=== PATIENT | female | born 1990 | race Caucasian/White ===

== ENCOUNTER 2017-06-24 13:25 | Inpatient (IN) | payer OTHER ==
[~2017-06-24] VITALS: Ht 165.1 cm; Wt 70.3 kg
[2017-06-24] MEDS ORDERED: LACTATED RINGERS 1000ML 1,000 ML IV PRN ×2 (13:28→14:43)
[2017-06-24] MEDS ORDERED: OXYTOCIN-LR 20 UNITS/1000 ML 1,000 ML IV SCH (13:30)
[2017-06-24 14:38] LABS: HEMATOCRIT 35.4 % (36-48); MEAN CORPUSCULAR HEMOGLOBIN 31.7 pg (27.0-33.0); MEAN CORPUSCULAR VOLUME 90.5 fL (79-99); PLATELET COUNT (AUTO) 168 K/uL (130-400); RED BLOOD CELL COUNT(AUTO) 3.91 MIL/uL (4.00-5.50); RED CELL DISTRIBUTION WIDTH 14.5 % (11.0-15.5); WHITE BLOOD COUNT (AUTO) 7.6 K/uL (4.8-10.8)
[2017-06-24] MEDS ORDERED: OXYTOCIN 10 USP UNITS/ML ONE ×2 (14:56→22:46)
[2017-06-24] MEDS ORDERED: EPHEDRINE-NS PF 50MG/5ML SYRINGE IV ONE (15:50)
[2017-06-24] MEDS ORDERED: LACTATED RINGERS 1000ML 1,000 ML IV ONE (22:45)
[2017-06-25] MEDS ORDERED: ROPIVACAINE 0.2%200ML EPIDURAL 200 ML EP SCH (03:15)
[2017-06-25] MEDS: OXYTOCIN 10 USP UNITS/ML 20 UNIT in LACTATED RINGERS 1000ML 1,000 ML IV SCH ×2 (04:10→11:17)
[2017-06-25] MEDS ORDERED: METHYLERGONOVINE MALEATE 0.2 MG/1 ML ML ONE (10:00)
[2017-06-25] MEDS ORDERED: MISOPROSTOL 200 MCG TABLET ONE (10:07)
[2017-06-25] MEDS ORDERED: CARBOPROST TROMETHAMINE 250 MCG/ML AMP IM ONE (10:07)
[2017-06-25] MEDS ORDERED: WITCH HAZEL 1 PAD TP PRN (10:15)
[2017-06-25] MEDS ORDERED: BENZOCAINE/LANOLIN/ALOE VERA 60 ML AEROSOL TP PRN (10:15)
[2017-06-25] MEDS ORDERED: ACETAMINOPHEN 325 MG TAB PO PRN (10:15)
[2017-06-25] MEDS ORDERED: LANOLIN 30GM OINTMENT TP PRN (10:15)
[2017-06-25] MEDS ORDERED: DIPH,PERTUSS(ACELL),TET VAC/PF 0.5 ML VIAL IM PRN (10:15)
[2017-06-25] MEDS ORDERED: ACETAMINOPHEN-CODEINE 300/30MG TAB PO PRN (10:15)
[2017-06-25] MEDS ORDERED: MEASLES/MUMPS/RUBELLA VACCINE, LIVE 0.5 ML/VIAL SQ PRN (10:15)
[2017-06-25 10:22] LABS: HEPATITIS Bs ANTIGEN SCREEN P Negative (Negative)
[2017-06-25] MEDS ORDERED: OXYTOCIN 10 USP UNITS/ML ONE ×2 (11:00→13:17)
[2017-06-25] MEDS: IBUPROFEN 800 MG TAB PO PRN (11:16)
[2017-06-25 12:30] VITALS: BP 124/78
[2017-06-25] MEDS ORDERED: PREN-154 PO (13:40)
[2017-06-25 15:26] VITALS: BP 121/75
[2017-06-25 19:34] VITALS: BP 101/70
[2017-06-25] MEDS: DOCUSATE SODIUM 100 MG CAP PO SCH (21:30)
[2017-06-25 23:20] VITALS: BP 124/75
[2017-06-26 03:41] VITALS: BP 114/67
[2017-06-26] MEDS: IBUPROFEN 800 MG TAB PO PRN ×2 (04:47→22:14)
[2017-06-26 07:41] VITALS: BP 116/77
[2017-06-26] MEDS: DOCUSATE SODIUM 100 MG CAP PO SCH ×2 (09:24→22:13)
[2017-06-26 11:34] VITALS: BP 110/65
[2017-06-26 15:54] VITALS: BP 115/77
[2017-06-26 19:55] VITALS: BP 113/64
[2017-06-26 23:25] VITALS: BP 109/63
[2017-06-27 03:45] VITALS: BP 122/79
[2017-06-27 07:30] VITALS: BP 118/76
[2017-06-27] MEDS: DOCUSATE SODIUM 100 MG CAP PO SCH (09:15)
[2017-06-27] MEDS: IBUPROFEN 800 MG TAB PO PRN (09:17)
[2017-06-27 11:17] VITALS: BP 109/70
[2017-06-27] MEDS ORDERED: DOCU-116 PO (11:28)
[2017-06-27] MEDS ORDERED: MO8B PO (11:29)
[2017-06-27 15:36] VITALS: BP 108/68
== END 2017-06-27 17:30 | disposition home or self-care (01) | DRG 775 ==
LOC: LDH 13:25 → WSH 06-25 12:09
PROVIDERS: ADMIT Obstetrics & Gynecology; ATTEND Obstetrics & Gynecology
PROC: 10907ZC Drainage of Amniotic Fluid, Therapeutic from Products of Conception, Via Natural or Artificial Opening (ICD-10-PCS; principal; 2017-06-25)
PROC: 10E0XZZ Delivery of Products of Conception, External Approach (ICD-10-PCS; 2017-06-25)
PROC: 3E033VJ Introduction of Other Hormone into Peripheral Vein, Percutaneous Approach (ICD-10-PCS; 2017-06-25)
PROC: 3E0234Z Introduction of Serum, Toxoid and Vaccine into Muscle, Percutaneous Approach (ICD-10-PCS; 2017-06-25)
PROC: 3E0134Z Introduction of Serum, Toxoid and Vaccine into Subcutaneous Tissue, Percutaneous Approach (ICD-10-PCS; 2017-06-25)
DX: O69.1XX0 Labor and delivery complicated by cord around neck, with compression, not applicable or unspecified (principal); O62.2 Other uterine inertia; Z37.0 Single live birth; Z3A.38 38 weeks gestation of pregnancy; Z23 Encounter for immunization
CPT/HCPCS: 36415; 85027; 86592; 86850; 86900; 86901; 87340; A4314; A4351; J2210; J2590; J3490; J7120

== ENCOUNTER 2019-01-11 10:05 | Observation (INO) | payer OTHER ==
[~2019-01-11 10:05] MED LIST: DOCU-116 PO; IBUP-1493 PO; PREN-154 PO
[2019-01-11 11:35] LABS: APPEARANCE,URINE Clear (CLEAR); BILIRUBIN,URINE Negative (NEGATIVE); COLOR,URINE Yellow (YELLOW); GLUCOSE, URINE (UA) TRACE mg/dL (NEGATIVE); KETONES,URINE Negative (NEGATIVE); LEUKOCYTE ESTERASE ,URINE Small (NEGATIVE); NITRATE,URINE Negative (NEGATIVE); OCCULT BLOOD,URINE Negative (NEGATIVE); PH,URINE 5.5 (5.0-8.0); PROTEIN,URINE Negative (NEGATIVE); UROBILINOGEN,URINE 0.2 mg/dL (0.2-1.0)
[2019-01-11 11:52] LABS: BACTERIA,URINE Rare /HPF (None Seen); RBC,URINE None Seen /HPF (0-1); SQUAMOUS EPITHELIAL CELL,UR 30-50 /HPF (0-2); TRANSITIONAL EPI CELLS,URINE Moderate /HPF (None Seen)
== END 2019-01-11 12:24 | disposition home or self-care (01) ==
LOC: LDH 10:05
PROVIDERS: ADMIT Obstetrics & Gynecology; ATTEND Obstetrics & Gynecology
DX: O36.8130 Decreased fetal movements, third trimester, not applicable or unspecified (principal); Z3A.37 37 weeks gestation of pregnancy
CPT/HCPCS: 59025; 76819; 81001; G0378 ×2

== ENCOUNTER 2019-01-17 05:42 | Inpatient (IN) | payer OTHER ==
[~2019-01-17] VITALS: Ht 167.6 cm; Wt 77.6 kg
[2019-01-17] MEDS ORDERED: LACTATED RINGERS 1000ML 1,000 ML IV PRN (05:58)
[2019-01-17] MEDS ORDERED: NALOXONE HCL 0.4 MG/1 ML ML IV PRN (06:00)
[2019-01-17] MEDS ORDERED: EPHEDRINE SULFATE 50 MG/ML AMPULE IVP PRN (06:00)
[2019-01-17] MEDS ORDERED: LACTATED RINGERS 500 ML 500 ML IV PRN (06:00)
[2019-01-17] MEDS ORDERED: ROPIVACAINE 0.2% 100ML VIAL 100 ML EP PRN (06:00)
[2019-01-17] MEDS ORDERED: OXYTOCIN-LR 20 UNITS/1000 ML 1,000 ML IV SCH (06:00)
[2019-01-17] MEDS ORDERED: OXYTOCIN 10 USP UNITS/ML 20 UNIT in LACTATED RINGERS 1000ML 1,000 ML IV SCH (06:15)
[2019-01-17] MEDS ORDERED: FLUO40CA7 PO (06:59)
[2019-01-17 07:04] VITALS: BP 119/73
[2019-01-17 07:22] LABS: APPEARANCE,URINE CLEAR (CLEAR); BILIRUBIN,URINE NEGATIVE (NEGATIVE); COLOR,URINE YELLOW (YELLOW); GLUCOSE, URINE (UA) NEGATIVE (NEGATIVE); KETONES,URINE NEGATIVE (NEGATIVE); LEUKOCYTE ESTERASE ,URINE NEGATIVE (NEGATIVE); NITRATE,URINE NEGATIVE (NEGATIVE); OCCULT BLOOD,URINE NEGATIVE (NEGATIVE); PH,URINE 5.5 (5.0-8.0); PROTEIN,URINE NEGATIVE (NEGATIVE); UROBILINOGEN,URINE 0.2 mg/dL (0.2-1.0)
[2019-01-17 07:28] LABS: HEMATOCRIT 32.2 % (36-48); MEAN CORPUSCULAR HEMOGLOBIN 29.7 pg (27.0-33.0); MEAN CORPUSCULAR HGB CONC 33.8 g/dL (32.0-36.0); PLATELET COUNT (AUTO) 142 K/uL (130-400); RED BLOOD CELL COUNT(AUTO) 3.65 MIL/uL (4.00-5.50); RED CELL DISTRIBUTION WIDTH 13.9 % (11.0-15.5); WHITE BLOOD COUNT (AUTO) 9.1 K/uL (4.8-10.8)
[2019-01-17] MEDS ORDERED: FENTANYL CITRATE PF 50 MCG/1 ML 2ML VIAL ONE ×3 (07:38→12:55)
[2019-01-17] MEDS ORDERED: METHYLERGONOVINE MALEATE 0.2 MG/1 ML ML ONE (12:26)
[2019-01-17] MEDS ORDERED: MISOPROSTOL 200 MCG TABLET ONE (12:31)
[2019-01-17] MEDS ORDERED: MIDAZOLAM HCL 1 MG/ML 2ML VIAL ONE (12:55)
[2019-01-17 13:31] LABS: BASOPHILS % (AUTO) 0.3 % (0.0-5.0); EOSINOPHILS % (AUTO) 0.2 % (0.0-8.0); HEMATOCRIT 29.3 % (36-48); LYMPHOCYTES % (AUTO) 12.8 % (21.0-51.0); MEAN CORPUSCULAR HEMOGLOBIN 29.8 pg (27.0-33.0); MEAN CORPUSCULAR HGB CONC 33.4 g/dL (32.0-36.0); MEAN CORPUSCULAR VOLUME 89.3 fL (79-99); MONOCYTES % (AUTO) 6.4 % (3.0-13.0); NEUTROPHILS % (AUTO) 80.3 % (40.0-77.0); PLATELET COUNT (AUTO) 133 K/uL (130-400); RED BLOOD CELL COUNT(AUTO) 3.29 MIL/uL (4.00-5.50); RED CELL DISTRIBUTION WIDTH 13.8 % (11.0-15.5); WHITE BLOOD COUNT (AUTO) 9.6 K/uL (4.8-10.8)
[2019-01-17] MEDS ORDERED: WITCH HAZEL 1 PAD TP PRN (14:00)
[2019-01-17] MEDS ORDERED: ACETAMINOPHEN 325 MG TAB PO PRN (14:00)
[2019-01-17] MEDS ORDERED: LANOLIN 30GM OINTMENT TP PRN (14:00)
[2019-01-17] MEDS ORDERED: MEASLES/MUMPS/RUBELLA VACCINE, LIVE 0.5 ML/VIAL SQ PRN (14:00)
[2019-01-17] MEDS ORDERED: CEFOXITIN SODIUM 2 GM VIAL IVP SCH (14:00)
[2019-01-17] MEDS ORDERED: BENZOCAINE/LANOLIN/ALOE VERA 60 ML AEROSOL TP PRN (14:00)
[2019-01-17] MEDS ORDERED: DIPH,PERTUSS(ACELL),TET VAC/PF 0.5 ML VIAL IM PRN (14:00)
[2019-01-17 14:20] LABS: INR 0.99 (0.85-1.15); PROTHROMBIN TIME 10.2 SEC (9.6-11.6)
[2019-01-17 14:47] LABS: PARTIAL THROMBOPLASTIN TIME 25.3 SEC (26.3-35.5)
[2019-01-17] MEDS ORDERED: LIDOCAINE PF 2% 5ML ABBOJECT ONE (17:04)
[2019-01-17] MEDS: ACETAMINOPHEN-CODEINE 300/30MG TAB PO PRN (18:43)
[2019-01-17] MEDS: DOCUSATE SODIUM 100 MG CAP PO SCH (21:01)
[2019-01-17] MEDS: IBUPROFEN 600 MG TABLET PO PRN (22:17)
[2019-01-18] MEDS: ACETAMINOPHEN-CODEINE 300/30MG TAB PO PRN (00:16)
[2019-01-18] MEDS: IBUPROFEN 600 MG TABLET PO PRN ×2 (03:56→17:13)
[2019-01-18 07:26] LABS: HEMATOCRIT 28.1 % (36-48); MEAN CORPUSCULAR HEMOGLOBIN 29.9 pg (27.0-33.0); MEAN CORPUSCULAR HGB CONC 33.4 g/dL (32.0-36.0); MEAN CORPUSCULAR VOLUME 89.7 fL (79-99); PLATELET COUNT (AUTO) 138 K/uL (130-400); RED BLOOD CELL COUNT(AUTO) 3.13 MIL/uL (4.00-5.50); RED CELL DISTRIBUTION WIDTH 13.6 % (11.0-15.5); WHITE BLOOD COUNT (AUTO) 9.2 K/uL (4.8-10.8)
[2019-01-18] MEDS: DOCUSATE SODIUM 100 MG CAP PO SCH (09:12)
[2019-01-18 10:14] VITALS: BP 114/69
--- NOTE | 2019-01-18 10:15 | NUR ---
ASSESSMENT FUNDUS IS FIRM, BLEEDING IS SCANT. INITIAL ASSESSMENT DONE BY ROBERT BARBER. PAIN REPORTED 3/10 DULL CRAMPING. PT DENIED NEED FOR PAIN MEDICATION. CALL LIGHT LEFT IN REACH ADVISED PATIENT TO CALL WITH ANY NEEDS OR CONCERNS.
[2019-01-18 11:53] VITALS: BP 126/67
--- NOTE | 2019-01-18 12:05 | NUR ---
ACTIVITY PT AMBULATING IN HALLWAY ACCOMPANIED BY FAMILY. NO C/O DIZZINESS REPORTED.
[2019-01-18] MEDS ORDERED: DIPH,PERTUSS(ACELL),TET VAC/PF 0.5 ML VIAL IM ONE ×2 (14:45→16:08)
[2019-01-18] MEDS ORDERED: FLU VACC QS2019-20 36MOS UP/PF 60 MCG/0.5 ML ML IM ONE (14:45)
--- NOTE | 2019-01-18 14:50 | NUR ---
ACTIVITY PATIENT AMBULATING TO NURSERY. NO C/O DIZZINESS REPORTED.
[2019-01-18 16:09] VITALS: BP 109/70
--- NOTE | 2019-01-18 16:45 | NUR ---
INSTRUCTIONS DISCHARGE INSTRUCTIONS READ AND EXPLAINED TO PATIENT. HANDOUTS HIGHLIGHTED AND REVIEWED WITH PATIENT. PRESCRIPTION FOR MOTRIN 800 MG AND COLACE 100MG HANDED TO PATIENT. HEMORRHAGE AND DEPRESSION REVIEWED WITH PATIENT. PT VOICED UNDERSTANDING.
--- NOTE | 2019-01-18 16:50 | NUR ---
INFORMED PATIENT THAT SOCIAL SERVICE WAS STILL PENDING. PATIENT VOICED UNDERSTANDING.
--- NOTE | 2019-01-18 17:00 | NUR ---
PT. STATES SHE WANTS TO LEAVE WITHOUT BEING SEEN BY SOCIAL SERVICE. ATTEMPT TO REACH [facility] VIA PHONE. NO ANSWER.
--- NOTE | 2019-01-18 17:11 | NUR ---
SPOKE WITH BIANCA,BUGGY MAN TO INFORM THAT PT IS REFUSING TO WAIT TO BE SEEN BY APARTMENT COMMUNITY ASSISTANT MANAGER AND WANTS TO BE DISCHARGED. BIANCA STATES PT IS OKAY TO DISCHARGE IF SHE DOES NOT WANT TO WAIT.
--- NOTE | 2019-01-18 17:20 | NUR ---
DISCHARGE PATIENT LEFT UNIT VIA WHEELCHAIR ACCOMPANIED BY FAMILY. PERSONAL VEHICLE USED FOR TRANSPORTATION. BABY TO STAY IN NURSERY.
[2019-01-20 07:14] LABS: HEPATITIS Bs ANTIGEN SCREEN P Negative (Negative)
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
== END 2019-01-18 17:20 | disposition home or self-care (01) | DRG 807 ==
LOC: LDH 05:42 → WSH 01-18 09:24
PROVIDERS: ADMIT Obstetrics & Gynecology; ATTEND Obstetrics & Gynecology
PROC: 10E0XZZ Delivery of Products of Conception, External Approach (ICD-10-PCS; principal; 2019-01-17)
PROC: 10907ZC Drainage of Amniotic Fluid, Therapeutic from Products of Conception, Via Natural or Artificial Opening (ICD-10-PCS; 2019-01-17)
PROC: 3E0P7VZ Introduction of Hormone into Female Reproductive, Via Natural or Artificial Opening (ICD-10-PCS; 2019-01-17)
PROC: 3E033VJ Introduction of Other Hormone into Peripheral Vein, Percutaneous Approach (ICD-10-PCS; 2019-01-17)
PROC: 00HU33Z Insertion of Infusion Device into Spinal Canal, Percutaneous Approach (ICD-10-PCS; 2019-01-17)
PROC: 3E0R3BZ Introduction of Anesthetic Agent into Spinal Canal, Percutaneous Approach (ICD-10-PCS; 2019-01-17)
PROC: 3E0234Z Introduction of Serum, Toxoid and Vaccine into Muscle, Percutaneous Approach (ICD-10-PCS; 2019-01-18)
PROC: 3E02340 Introduction of Influenza Vaccine into Muscle, Percutaneous Approach (ICD-10-PCS; 2019-01-18)
DX: O99.344 Other mental disorders complicating childbirth (principal); Z37.0 Single live birth; O62.2 Other uterine inertia; F41.9 Anxiety disorder, unspecified; F43.10 Post-traumatic stress disorder, unspecified; Z23 Encounter for immunization; Z3A.39 39 weeks gestation of pregnancy
CPT/HCPCS: 36415; 81003; 85025; 85027; 85384; 85610; 85730; 86592; 86850; 86900; 86901; 87340; 90715; A4314; A4351; G0378; J0694; J2001; J2210; J2250; J2590; J2795; J3010; J7120

== ENCOUNTER 2020-03-27 05:57 | Inpatient (IN) | payer OTHER ==
[~2020-03-27] VITALS: Ht 165.1 cm; Wt 82.1 kg
[~2020-03-27 05:57] MED LIST changes: +FLUO40CA7 PO
[2020-03-27] MEDS ORDERED: OXYTOCIN-LR 20 UNITS/1000 ML 1,000 ML IV SCH ×2 (06:00→06:15)
[2020-03-27] MEDS ORDERED: MISOPROSTOL 200 MCG TABLET PR PRN (06:15)
[2020-03-27] MEDS ORDERED: TRANEXAMIC ACID 1,000 MG in 0.9%NACL 100ML 100 ML IV PRN (06:15)
[2020-03-27] MEDS ORDERED: METHYLERGONOVINE MALEATE 0.2 MG/1 ML ML IM PRN (06:15)
[2020-03-27] MEDS ORDERED: LACTATED RINGERS 500 ML 500 ML IV PRN (06:30)
[2020-03-27] MEDS ORDERED: ROPIVACAINE 0.2% 100ML VIAL 100 ML EP SCH (06:30)
[2020-03-27] MEDS ORDERED: NALOXONE HCL 0.4 MG/1 ML ML IV PRN (06:30)
[2020-03-27] MEDS ORDERED: EPHEDRINE SULFATE 50 MG/ML AMPULE IVP PRN (06:30)
[2020-03-27 06:40] LABS: APPEARANCE,URINE CLEAR (CLEAR); BILIRUBIN,URINE SMALL (NEGATIVE); COLOR,URINE YELLOW (YELLOW); GLUCOSE, URINE (UA) 100 mg/dL (NEGATIVE); KETONES,URINE 15 mg/dL (NEGATIVE); LEUKOCYTE ESTERASE ,URINE NEGATIVE (NEGATIVE); NITRATE,URINE NEGATIVE (NEGATIVE); OCCULT BLOOD,URINE NEGATIVE (NEGATIVE); PROTEIN,URINE TRACE mg/dL (NEGATIVE); UROBILINOGEN,URINE 0.2 mg/dL (0.2-1.0)
[2020-03-27 06:46] LABS: BACTERIA,URINE Rare /HPF (None Seen); RBC,URINE 0-1 /HPF (0-1); SQUAMOUS EPITHELIAL CELL,UR Rare /HPF (0-2); WBC,URINE 0-1 /HPF (0-1)
[2020-03-27 06:47] LABS: MUCUS,URINE Rare LPF (None Seen)
[2020-03-27] MEDS: LACTATED RINGERS 1000ML 1,000 ML IV PRN ×3 (07:40→09:30)
[2020-03-27 07:58] LABS: HEMATOCRIT 38.4 % (36-48); MEAN CORPUSCULAR HEMOGLOBIN 30.3 pg (27.0-33.0); MEAN CORPUSCULAR HGB CONC 33.3 g/dL (32.0-36.0); MEAN CORPUSCULAR VOLUME 90.8 fL (79-99); RED BLOOD CELL COUNT(AUTO) 4.23 MIL/uL (4.00-5.50); RED CELL DISTRIBUTION WIDTH 17.5 % (11.0-15.5); WHITE BLOOD COUNT (AUTO) 8.8 K/uL (4.8-10.8)
[2020-03-27] MEDS ORDERED: ACETAMINOPHEN 325 MG TAB PO PRN (11:15)
[2020-03-27] MEDS ORDERED: LANOLIN 30GM OINTMENT TP PRN (11:15)
[2020-03-27] MEDS ORDERED: WITCH HAZEL 1 PAD TP PRN (11:15)
[2020-03-27] MEDS ORDERED: BENZOCAINE/LANOLIN/ALOE VERA 60 ML AEROSOL TP PRN (11:15)
[2020-03-27] MEDS ORDERED: ACETAMINOPHEN WITH CODEINE 1 TAB TAB PO PRN (11:15)
[2020-03-27 13:14] VITALS: BP 119/72
[2020-03-27] MEDS: IBUPROFEN 600 MG TABLET PO PRN (13:24)
[2020-03-27] MEDS ORDERED: FLU VACC QS2020-21(6MOS UP)/PF 60 MCG/0.5 ML ML IM ONE (13:45)
[2020-03-27 16:15] VITALS: BP 126/80
[2020-03-27] MEDS: DIPH,PERTUSS(ACELL),TET VAC/PF 0.5 ML VIAL IM SCH (17:59)
[2020-03-27] MEDS: FLU VACC QS2020-21(6MOS UP)/PF 60 MCG/0.5 ML ML IM SCH (18:00)
[2020-03-27 19:37] VITALS: BP 114/73
[2020-03-27] MEDS: DOCUSATE SODIUM 100 MG CAP PO SCH (20:28)
[2020-03-27 23:32] VITALS: BP 119/69
[2020-03-28] MEDS: IBUPROFEN 600 MG TABLET PO PRN ×4 (03:10→23:29)
[2020-03-28 03:22] VITALS: BP 122/84
[2020-03-28 06:12] LABS: HEPATITIS Bs ANTIGEN SCREEN P Negative (Negative)
[2020-03-28] MEDS: FLU VACC QS2020-21(6MOS UP)/PF 60 MCG/0.5 ML ML IM SCH (06:16)
[2020-03-28] MEDS: DIPH,PERTUSS(ACELL),TET VAC/PF 0.5 ML VIAL IM SCH (06:16)
[2020-03-28] MEDS ORDERED: FLUOXETINE HCL 20 MG CAPSULE PO SCH (09:07)
[2020-03-28] MEDS: DOCUSATE SODIUM 100 MG CAP PO SCH ×2 (09:35→22:13)
[2020-03-28 12:00] VITALS: BP 118/81
[2020-03-28 17:00] VITALS: BP 112/72
[2020-03-28 19:25] VITALS: BP 132/77
[2020-03-28 19:40] VITALS: BP 124/54
[2020-03-28 23:35] VITALS: BP 113/70
[2020-03-29 02:53] VITALS: BP 114/64
[2020-03-29 07:35] VITALS: BP 120/71
[2020-03-29] MEDS: DOCUSATE SODIUM 100 MG CAP PO SCH (08:48)
[2020-03-29] MEDS: IBUPROFEN 600 MG TABLET PO PRN (08:49)
== END 2020-03-29 10:05 | disposition home or self-care (01) | DRG 807 ==
LOC: LDH 05:57 → WSH 13:15
PROVIDERS: ADMIT Obstetrics & Gynecology; ATTEND Obstetrics & Gynecology
PROC: 10E0XZZ Delivery of Products of Conception, External Approach (ICD-10-PCS; principal; 2020-03-27)
PROC: 10907ZC Drainage of Amniotic Fluid, Therapeutic from Products of Conception, Via Natural or Artificial Opening (ICD-10-PCS; 2020-03-27)
PROC: 3E0R3BZ Introduction of Anesthetic Agent into Spinal Canal, Percutaneous Approach (ICD-10-PCS; 2020-03-27)
PROC: 00HU33Z Insertion of Infusion Device into Spinal Canal, Percutaneous Approach (ICD-10-PCS; 2020-03-27)
PROC: 3E02340 Introduction of Influenza Vaccine into Muscle, Percutaneous Approach (ICD-10-PCS; 2020-03-27)
PROC: 3E0P7VZ Introduction of Hormone into Female Reproductive, Via Natural or Artificial Opening (ICD-10-PCS; 2020-03-27)
DX: O99.62 Diseases of the digestive system complicating childbirth (principal); Z37.0 Single live birth; Z3A.38 38 weeks gestation of pregnancy; Z23 Encounter for immunization; O60.23X0 Term delivery with preterm labor, third trimester, not applicable or unspecified; O99.344 Other mental disorders complicating childbirth; F41.9 Anxiety disorder, unspecified; F32.9 Major depressive disorder, single episode, unspecified; K21.9 Gastro-esophageal reflux disease without esophagitis
CPT/HCPCS: 36415; 81001; 85027; 86592; 86850; 86900; 86901; 86923; 87340; 90715; A4314; A4606; G0378; J2210; J2590; J2795; J7120; Q2035

== ENCOUNTER → 2023-08-29 | Outpatient (CLI) | payer OTHER | END | disposition home or self-care (01) | LOC: SHCH 15:43 | PROVIDERS: ATTEND Internal Medicine Cardiovascular Disease | DX: I35.1 Nonrheumatic aortic (valve) insufficiency (principal); I51.7 Cardiomegaly; R01.1 Cardiac murmur, unspecified; R00.2 Palpitations; R00.0 Tachycardia, unspecified | CPT/HCPCS: 93306; 93356 ==